=== PATIENT | male | born 1970 | race Caucasian/White ===

== ENCOUNTER 2017-05-17 16:26 | Observation (INO) | payer BC ==
--- NOTE | 2017-05-17 16:59 | RAD ---
PORTABLE AP CHEST: Date: 05/17/17. HISTORY: Chest pain. Patient diagnosed with flu last week. Patient is also hypotensive and dizzy. COMPARISON: 10/14/16. FINDINGS: Cardiac silhouette is magnified by projection. Pulmonary vasculature is within normal limits. The tennille gs are clear. There has been no interval change from prior study. IMPRESSION: No acute cardiopulmonary process. POS: [facility]
[2017-05-17 17:54] LABS: #Lymphocytes 1.1 thou/uL (1.20-3.40); #Monocytes 1.1 thou/uL (0.11-0.59); #Neutrophils 10.4 thou/uL (1.40-6.50); %Basophils 0.1 % (0.0-1.0); %Eosinophils 0.2 % (0.0-10.0); %Lymphocytes 8.4 % (21.0-51.0); %Monocytes 8.4 % (0.0-10.0); %Neutrophils 82.9 % (42.0-75.0); Hemoglobin 15.6 g/dL (14.0-18.0); Mean Corpuscular HGB CONC 33.2 g/dL (32.0-36.0); Mean Corpuscular Hemoglobin 29.7 pg (27.0-31.0); Mean Corpuscular Volume 89.4 fl (80.0-94.0); Mean Platelet Volume 7.1 fL (7.4-10.4); Platelet Count 268 thou/uL (130-400); RBC Distribution Width 13.7 % (11.5-14.5); Red Blood Cell (RBC) Count 5.25 mill/uL (4.70-6.10); White Blood Cell (WBC) Count 12.5 thou/uL (4.8-10.8)
[2017-05-17 18:17] LABS: ALT (SGPT) 28 U/L (8-55); AST (SGOT) 25 U/L (5-34); Albumin 4.3 g/dL (3.5-5.0); Alkaline Phosphatase 95 U/L (40-150); Anion Gap 16 mmol/L (10-20); BUN (Urea Nitrogen) 17 mg/dL (8.9-20.6); Bilirubin, Total 1.1 mg/dL (0.2-1.2); Calc. Creatinine Clearance 0 mL/min (70-130); Carbon Dioxide 29 mmol/L (22-29); Chloride 93 mmol/L (98-107); Estimated GFR-MDRD 29; Globulin 3.6 g/dL (2.4-3.5); Glucose 85 mg/dL (70-105); Lipase 42 U/L (8-78); Magnesium 2.1 mg/dL (1.6-2.6); Protein, Total 7.9 g/dL (6.0-8.3); Sodium 134 mmol/L (136-145)
[2017-05-17 19:19] LABS: Bilirubin Negative (Negative); Blood, Urine Negative (Negative); Clarity CLOUDY (Clear); Glucose, Urine (Dipstick) Negative (Negative); Leukocyte Negative (Negative); Nitrite Negative (Negative); Protein, Urine (Dipstick) 100 mg/dL (Neg-Trace); Specific Gravity, Urine 1.014 (1.002-1.036)
[2017-05-17 19:24] LABS: Pathc Cast-AUWi Flag 2.43 (0-2.49); Yeast-AUWi Flag 19.5 (0-25.0)
[2017-05-17 19:33] LABS: Bacteria/HPF 1+ HPF (None Seen); Hyaline Casts/LPF 0-3 HYALINE CAST LPF (0-3 Hyaline); Renal Epithelial None Seen HPF (0-3); Transitional Epithelial NONE SEEN HPF (0-3)
[2017-05-18] MEDS ORDERED: Mag-Al 1200 mg/1200 mg/30 ML UDCUP PO PRN (01:08)
[2017-05-18] MEDS ORDERED: Ondansetron HCl/PF 4 MG/2 ML Vial IVP PRN (01:08)
[2017-05-18] MEDS ORDERED: Diabetic Tussin 200 MG/10 ML UDCUP PO PRN (01:08)
[2017-05-18] MEDS ORDERED: Bisacodyl 5 MG TAB PO PRN (01:08)
[2017-05-18] MEDS ORDERED: Benzonatate 100 MG CAP PO PRN (01:08)
[2017-05-18] MEDS ORDERED: cloNIDine 0.1 MG TAB PO PRN (01:08)
[2017-05-18] MEDS ORDERED: hydrALAZINE 20 MG/ML VIAL SLOW IVP PRN (01:08)
[2017-05-18] MEDS ORDERED: Loratadine 10 MG TAB PO PRN (01:08)
[2017-05-18] MEDS ORDERED: Nitroglycerin 0.4 MG TAB (25 Tab Bottle) SL PRN (01:08)
[2017-05-18] MEDS ORDERED: Calcium Carbonate 500 MG ChewTAB PO PRN (01:08)
[2017-05-18] MEDS ORDERED: Acetaminophen 325 MG TAB PO PRN (01:08)
[2017-05-18] MEDS ORDERED: Senokot 8.6 MG TAB PO PRN (01:08)
[2017-05-18] MEDS ORDERED: Sodium Chloride 0.9% 1,000 ML IV SCH (01:15)
[2017-05-18 01:18] VITALS: BMI 40.1
[2017-05-18 06:20] LABS: #Eosinphils 0.1 thou/uL (0.0-0.7); #Lymphocytes 1.5 thou/uL (1.20-3.40); #Monocytes 0.6 thou/uL (0.11-0.59); #Neutrophils 5.6 thou/uL (1.40-6.50); %Basophils 0.1 % (0.0-1.0); %Eosinophils 0.7 % (0.0-10.0); %Lymphocytes 18.8 % (21.0-51.0); %Monocytes 8.2 % (0.0-10.0); %Neutrophils 72.3 % (42.0-75.0); Hemoglobin 15.1 g/dL (14.0-18.0); Mean Corpuscular HGB CONC 32.7 g/dL (32.0-36.0); Mean Corpuscular Hemoglobin 29.4 pg (27.0-31.0); Mean Corpuscular Volume 89.9 fl (80.0-94.0); Mean Platelet Volume 6.9 fL (7.4-10.4); Platelet Count 225 thou/uL (130-400); RBC Distribution Width 13.7 % (11.5-14.5); Red Blood Cell (RBC) Count 5.15 mill/uL (4.70-6.10); White Blood Cell (WBC) Count 7.8 thou/uL (4.8-10.8)
--- NOTE | 2017-05-18 06:35 | HP ---
DATE OF ADMISSION: 05/17/2017 PRIMARY CARE PHYSICIAN: Prieto Lea M.D. CHIEF COMPLAINT: Dizziness. HISTORY OF PRESENT ILLNESS: Mr. Sky is a 47-year-old male with past medical history of hypertensi on, varicose vein, and bipolar illness who presented to the emergency room with the above-mentioned c omplaints. History is mainly obtained by the patient himself and electronic medical records have bee n reviewed. According to Mr. Sky, he was at work today when he started to feel that he is going to pass out an d came to the emergency room. He recently had some cold, body aches and high fever at home and was p rescribed Tamiflu, which he decided not to take. He also had some loose stools earlier this morning. He also decided to increase his Cozaar by himself; even though, when his primary care physician has decreased it to half. He has been taking a full dose for the last one week. He also is not measuri ng his blood pressure because his blood pressure machine is broken. Nevertheless, he presented to [facility] emergency room and was found to be somewhat hypotensive with a blood pressure of 96/67 with elevate d BUN and creatinine suggestive of acute kidney insufficiency. He received IV fluids and is now bein g admitted for acute renal insufficiency and dehydration. He is otherwise hemodynamically stable. H is urinalysis did show +1 bacteria, but multiple epithelial cells and wbc's. He also has some protei matt. For this reason, he has received one dose of Rocephin in the emergency room. PAST MEDICAL HISTORY: 1. illness. 2. Hypertension. 3. Varicose veins. 4. History of venous stasis ulcer. PAST SURGICAL HISTORY: Vein stripping in 2001, urethral dilatation in , and wisdom teeth extrac tion in . ALLERGIES: CODEINE and PENICILLIN. CURRENT MEDICATIONS: Cozaar, otherwise the patient does not remember. SOCIAL HISTORY: He lives alone and is employed. Denies any drug, tobacco or alcohol abuse. FAMILY HISTORY: Diabetes, skin cancer on mother's side. Varicose vein and depression on father's si de. REVIEW OF SYSTEMS: The following complete review of systems was negative, unless otherwise mentioned in the HPI or below: Constitutional: Weight loss or gain, ability to conduct usual activities. Skin: Rash, itching. Eyes: Double vision, pain. ENT/Mouth: Nose bleeding, neck stiffness, pain, tenderness. Cardiovascular: Palpitations, dyspnea on exertion, orthopnea. Respiratory: Shortness of breath, wheezing, cough, hemoptysis, fever or night sweats. Gastrointestinal: Poor appetite, abdominal pain, heartburn, nausea, vomiting, constipation, or diarr hea. Genitourinary: Urgency, frequency, dysuria, nocturia. Musculoskeletal: Pain, swelling. Neurologic/Psychiatric: Anxiety, depression. Allergy/Immunologic: Skin rash, bleeding tendency. It is negative except for those mentioned in the history and physical. PHYSICAL EXAMINATION: VITAL SIGNS: Upon presentation, blood pressure 96/67, pulse of 96, respirations 20, saturating 95% o n room air, and temperature 98.4. GENERAL: No acute distress, awake, alert, oriented x3. HEENT: He has evidence of healed blisters on his lips. Mucous membrane is moist. Head is normoceph alic, atraumatic. Pupils equal, reactive to light and accommodation. NECK: Supple without any lymphadenopathy, JVD or bruit. CHEST: Clear to auscultation without any wheezing, rales or rhonchi. CARDIOVASCULAR: Rate and rhythm is regular without any murmur, rubs or gallops. ABDOMEN: Soft, nontender, nondistended with positive bowel sounds. EXTREMITIES: Free of any cyanosis, clubbing, or edema. He does have chronic venostasis changes in b ot lower extremities. NEUROLOGIC: Nonfocal. PSYCHIATRIC: No anxiety, no depression. LYMPHATIC: Normal. LABORATORY EXAMINATION: CBC shows WBCs at 12.5, platelet count of 268, neutrophils 82%. Serum chemi stry shows sodium 134, chloride 93, bicarbonate is normal at 29, creatinine 2.44 with BUN 17. Estima elkin GFR 29. Urinalysis as per HPI. His nasal swab for influenza is negative. PCR is not done. Yue st x-ray by my review is negative for any evidence of infiltrate or pleural fluid. A 12-lead EKG by my review shows prolonged QT interval, QTC of 487 milliseconds, otherwise sinus rhythm at 98 beats pe r minute. IMPRESSION AND PLAN: 1. Near syncope secondary to dehydration. The patient has possibly had influenza recently, which he decided to not treat, has decreased oral intake along with high fevers and likely is dehydrated seco ndary to that. He will be resuscitated with IV fluids and we will monitor closely. Hold his antihyp ertensives for now. 2. Acute renal insufficiency. Once again likely secondary to dehydration, prerenal in nature; howev er, given the proteinuria, we will repeat the urinalysis in the morning. If he continues to have pro teinuria and if his renal function does not improve, please consider consulting Nephrology or outpati ent Nephrology followup. We will also obtain renal ultrasound to rule out hydronephrosis or nephroli thiasis as cause of proteinuria as well as for medical renal disease. 3. Bacteriuria. His urine sample looks contaminated. At this time, we will repeat the urinalysis a nd avoid using antibiotics for now. 4. History of hypertension. We will hold the antihypertensives for now and reconcile his home medic ations. He most likely will benefit from going back to the half dose of Cozaar that he takes or just replace ALLI inhibitor and ARBs with alternative form of medications. We will avoid any diuretics at this time as well for blood pressure control. 5. Code status: FULL CODE, discussed with the patient. DISPOSITION: Mr. Sky is being admitted for dehydration and acute renal insufficiency at this time . Further management will depend upon his clinical course. Current status is observation.
[2017-05-18 06:38] LABS: Anion Gap 13 mmol/L (10-20); BUN (Urea Nitrogen) 14 mg/dL (8.9-20.6); Calc. Creatinine Clearance 164 mL/min (70-130); Calcium 9.5 mg/dL (7.8-10.44); Carbon Dioxide 29 mmol/L (22-29); Chloride 100 mmol/L (98-107); Estimated GFR-MDRD 72; Glucose 93 mg/dL (70-105); Potassium 3.4 mmol/L (3.5-5.1); Sodium 139 mmol/L (136-145)
[2017-05-18 07:24] VITALS: TEMP 98.8
--- NOTE | 2017-05-18 07:38 | ULT ---
BILATERAL RENAL ULTRASOUND: Date: 05/18/17 COMPARISON: None. HISTORY: Acute kidney injury, proteinuria. TECHNIQUE: Multiplanar Mercedes scale sonographic imaging of the kidneys and urinary bladder obtained. FINDINGS: Right kidney measures 11.6 x 6.2 x 7.3 cm. Left kidney measures 13.0 x 6.3 x 6.7 cm. No renal mass, h ydronephrosis, or stone seen on either side. Urinary bladder appears grossly unremarkable. IMPRESSION: Unremarkable renal ultrasound. POS: [facility]
[2017-05-18 09:59] VITALS: BP 135/77
== END 2017-05-18 10:56 | disposition home or self-care (01) ==
LOC: ERS 16:26 → ONC 20:52
PROVIDERS: ADMIT Internal Medicine; ATTEND Internal Medicine
DX: E86.0 Dehydration (principal); N28.9 Disorder of kidney and ureter, unspecified; R55 Syncope and collapse; R82.71 Bacteriuria; I10 Essential (primary) hypertension; F31.9 Bipolar disorder, unspecified; Z88.5 Allergy status to narcotic agent; Z88.0 Allergy status to penicillin; Z79.899 Other long term (current) drug therapy; Z98.890 Other specified postprocedural states; Z83.3 Family history of diabetes mellitus; Z80.8 Family history of malignant neoplasm of other organs or systems; Z81.8 Family history of other mental and behavioral disorders
CPT/HCPCS: 36415; 71045; 76770; 80053; 81003; 81015; 83690; 83735; 85025; 93005; 96361; 96374; G0378; J0696

== ENCOUNTER 2017-05-30 19:30 | Outpatient (CLI) | payer BC | END 2017-05-30 19:31 | disposition home or self-care (01) | LOC: SLEEPLAB 19:30 | PROVIDERS: ATTEND Internal Medicine Pulmonary Disease | DX: G47.33 Obstructive sleep apnea (adult) (pediatric) (principal); E66.9 Obesity, unspecified; K21.9 Gastro-esophageal reflux disease without esophagitis | CPT/HCPCS: 95811 ==

== ENCOUNTER 2017-08-01 06:50 | Inpatient (IN) | payer BC ==
[2017-08-01 08:15] LABS: #Eosinphils 0.1 thou/uL (0.0-0.7); #Lymphocytes 1.3 thou/uL (1.20-3.40); #Monocytes 0.5 thou/uL (0.11-0.59); %Eosinophils 2.4 % (0.0-10.0); %Lymphocytes 22.5 % (21.0-51.0); %Monocytes 8.1 % (0.0-10.0); %Neutrophils 67.1 % (42.0-75.0); Hemoglobin 12.7 g/dL (14.0-18.0); Mean Corpuscular HGB CONC 33.3 g/dL (32.0-36.0); Mean Corpuscular Hemoglobin 29.5 pg (27.0-31.0); Mean Corpuscular Volume 88.5 fl (80.0-94.0); Mean Platelet Volume 6.8 fL (7.4-10.4); Platelet Count 232 thou/uL (130-400); White Blood Cell (WBC) Count 5.9 thou/uL (4.8-10.8)
[2017-08-01 08:31] LABS: ALT (SGPT) 27 U/L (8-55); AST (SGOT) 25 U/L (5-34); Albumin 3.8 g/dL (3.5-5.0); Alkaline Phosphatase 97 U/L (40-150); Anion Gap 10 mmol/L (10-20); BUN (Urea Nitrogen) 7 mg/dL (8.9-20.6); Bilirubin, Total 0.5 mg/dL (0.2-1.2); Calc. Creatinine Clearance 0 mL/min (70-130); Carbon Dioxide 26 mmol/L (22-29); Chloride 105 mmol/L (98-107); Estimated GFR-MDRD Greater than 90; Globulin 3.5 g/dL (2.4-3.5); Glucose 97 mg/dL (70-105); Potassium 3.8 mmol/L (3.5-5.1); Protein, Total 7.3 g/dL (6.0-8.3); Sodium 137 mmol/L (136-145)
--- NOTE | 2017-08-01 09:07 | ULT ---
RIGHT LOWER EXTREMITY VENOUS DUPLEX SONOGRAM: Date: 08/01/17 HISTORY: Right leg pain and edema. FINDINGS: The right common femoral vein and greater saphenous junction were evaluated, along with the femoral, deep femoral, popliteal, and posterior tibial veins. There is good color and spectral Doppler flow, c ompression, and augmentation. Reactive appearing lymph nodes are noted at the right groin. IMPRESSION: No sonographic evidence of deep venous thrombosis in right lower extremity. POS: [facility]
[2017-08-01] MEDS ORDERED: Mag-Al 1200 mg/1200 mg/30 ML UDCUP PO PRN (12:21)
[2017-08-01] MEDS ORDERED: Ondansetron ODT 4 MG TAB PO PRN (12:21)
[2017-08-01] MEDS ORDERED: Zolpidem Tartrate 5 MG TAB PO PRN (12:21)
[2017-08-01] MEDS ORDERED: Diabetic Tussin 200 MG/10 ML UDCUP PO PRN (12:21)
[2017-08-01] MEDS ORDERED: Senokot 8.6 MG TAB PO PRN (12:21)
[2017-08-01] MEDS ORDERED: Loperamide HCl 2 MG CAP PO PRN (12:21)
[2017-08-01] MEDS ORDERED: Chloraseptic Spray 180 ml Bottle PO PRN (12:21)
[2017-08-01] MEDS ORDERED: Sodium Chloride 0.65% Nasal 44 ML BOT EA NARE PRN (12:21)
[2017-08-01] MEDS ORDERED: Loratadine 10 MG TAB PO PRN (12:21)
[2017-08-01] MEDS ORDERED: Milk Of Magnesia 30 ML UDCUP PO PRN (12:21)
[2017-08-01] MEDS ORDERED: hydrALAZINE 20 MG/ML VIAL SLOW IVP PRN (12:21)
[2017-08-01] MEDS ORDERED: Artificial Tears 18 DROP/0.9 ML EA EYE PRN (12:21)
[2017-08-01] MEDS ORDERED: Fentanyl 100 MCG/2 ML VIAL SLOW IVP PRN (12:21)
[2017-08-01] MEDS ORDERED: Ondansetron HCl/PF 4 MG/2 ML Vial IVP PRN (12:21)
[2017-08-01] MEDS ORDERED: Eucerin (Mineral Oil/Petrolatum,White) 30 gm Jar TOP PRN (12:21)
[2017-08-01 12:39] VITALS: BMI 42.8
--- NOTE | 2017-08-01 13:28 | HP ---
PRIMARY CARE PHYSICIAN: Dr. Prieto Lea. REASON FOR ADMISSION: Right lower extremity cellulitis with venous ulcer. HISTORY OF PRESENT ILLNESS: A 47-year-old male with a history of hypertension, morbid obesity, and c hronic venous insufficiency who came to the emergency room with complaint of right lower extremity sw elling, pain, erythema, and drainage from the wound over right lower leg. The patient has this for t he last couple of weeks. He was given Bactrim and Keflex from Urgent Care last week which he was monserrat ing every day basis without any improvement. He was feeling that swelling, erythema and pain is gett ing worse. He was also having fever about a week ago, but after starting antibiotic, fever subsided, but swelling, erythema is getting worse. He denies wearing any compression stockings. He denies an y trauma. He denies any insect bite. He is following [facility] with Dr. Sheehan and he is plan jhonatan for ablation therapy on 08/11/[address] Sheehan. The patient reports that his pain in the lower extremity is about 10/10 and with walking, pain is get ting worse. In the emergency room, ultrasound was done which was negative for any DVT. He denies an y constipation, diarrhea, melena, hematochezia. He denies any UTI symptoms. He denies any chest bobbi n, palpitation, shortness of breath. REVIEW OF SYSTEMS: The following complete review of systems was negative, unless otherwise mentioned in the HPI or below: Constitutional: Weight loss or gain, ability to conduct usual activities. Sk in: Rash, itching. Eyes: Double vision, pain. ENT/Mouth: Nose bleeding, neck stiffness, pain, te nderness. Cardiovascular: Palpitations, dyspnea on exertion, orthopnea. Respiratory: Shortness of breath, wheezing, cough, hemoptysis, fever or night sweats. Gastrointestinal: Poor appetite, abdomi nal pain, heartburn, nausea, vomiting, constipation, or diarrhea. Genitourinary: Urgency, frequency , dysuria, nocturia. Musculoskeletal: Pain, swelling. Neurologic/Psychiatric: Anxiety, depression . Allergy/Immunologic: Skin rash, bleeding tendency. Please see my HPI for pertinent positives and negatives. All other review of systems reviewed and negative except as mentioned in the HPI. PAST MEDICAL HISTORY: Morbid obesity, hypertension, varicose vein, chronic venous insufficiency. PAST PSYCHIATRIC HISTORY: Bipolar disorder. PAST SURGICAL HISTORY: Vein stripping in 2001, urethral dilatation in 1979, wisdom tooth removal in 1979. ALLERGIES: CODEINE and PENICILLIN. CURRENT HOME MEDICATIONS: Prozac 20 mg p.o. daily, losartan 100 mg p.o. daily, olanzapine 10 mg p.o. at bedtime. SOCIAL HISTORY: Patient lives alone. He denies any tobacco, alcohol or illicit drug abuse. FAMILY HISTORY: Diabetes, skin cancer runs on mother's side. Varicose vein and depression runs on t he father's side. EMERGENCY ROOM COURSE: The patient has given vancomycin. PHYSICAL EXAMINATION: VITAL SIGNS: Currently, blood pressure 156/104, pulse 83, respiratory rate 20, temperature 98.0, sat uration 99% on room air, weight 154.2 kilograms. GENERAL: Patient is currently alert, awake, no acute distress. HEENT: Head, normocephalic, atraumatic. Eyes: Pupils round, reactive to light. Extraocular muscle intact. ENT: Oropharynx within normal limits. Moist mucous membranes. No oral lesion, no pharyng eal erythema, no exudate. NECK: Supple, no JVD, no thyromegaly, no carotid bruit, no jugular venous distention. LUNGS: Clear to auscultation without any rhonchi or rales. CARDIAC: S1, S2 appears regular. No murmur, no gallop, no rub. ABDOMEN: Soft, bowel sounds present, nontender, nondistended. No organomegaly, no mass, no suprapub ic tenderness. Morbid obesity limiting examination. BACK: Unremarkable, no CVA tenderness. EXTREMITIES: Upper extremity, passive movement of all joints is normal. Lower extremity, bilateral lower extremity, chronic venous insufficiency changes noted. Patient does have mid santana tenderness. Bilateral lower extremity erythematous changes with hyperpigmentation more on the right side with oo zing noted from erythema as well as from ulcers. NEUROLOGIC: Nonfocal examination. The patient moves all 4 limbs. Plantar bilateral flexor. SKIN: No skin rash other than chronic venous stasis changes as well as cellulitis changes in both lo wer extremities, more on the right lower extremity. HEMATOLOGIC: No lymphadenopathy. PSYCHIATRIC: Normal affect. SIGNIFICANT LABS: Ultrasound of lower extremity negative for any DVT. CBC: WBC 5.9, hemoglobin 12. 7, platelets 232. BMP shows sodium 137, potassium 3.8, chloride 105, carbon dioxide 26, anion gap 10 , BUN 7, creatinine 0.73, glucose 97, calcium 9.0. LFT: AST 25, ALT 27, alkaline phosphatase is 97, albumin 3.8. ASSESSMENT AND PLAN: 1. Cellulitis with venous ulcer on the right lower extremity, failed outpatient therapy. 2. Chronic venous insufficiency with varicose vein. 3. Morbid obesity. 4. Hypertension. 5. Anxiety, depression with bipolar disorder. PLAN: 1. Admission to medical floor. Antibiotic therapy with vancomycin and levofloxacin. DVT prophylaxi s with Lovenox 40 mg subcutaneously daily. 2. Gastrointestinal prophylaxis with Pepcid 20 mg p.o. b.i.d. Resume home medication, Prozac 20 mg p.o. daily, olanzapine 10 mg p.o. daily along with antihypertensive medication, losartan 100 mg p.o. daily. Pain control with fentanyl p.r.n. basis and Toradol on p.r.n. basis. Wound care team will be consulted for wound care followup and culture result. 3. Code status: The patient is FULL CODE. Patient does not have any surrogate decision maker. He is making his decision by himself. DISPOSITION PLAN: Based on clinical course. We are expecting patient's stay in hospital more than 2 midnights. Plan of care discussed with the patient in detail.
[2017-08-01] MEDS: Vancomycin HCl 2 GM, Admixture Fee 1 EACH in Sodium Chloride 0.9% 500 ML IVPB SCH ×2 (14:56→21:12)
[2017-08-01] MEDS: Ketorolac Tromethamine 30 MG/ML VIAL IVP PRN (16:10)
[2017-08-01] MEDS: Famotidine 20 MG TAB PO SCH (21:12)
[2017-08-02] MEDS: Vancomycin HCl 2 GM, Admixture Fee 1 EACH in Sodium Chloride 0.9% 500 ML IVPB SCH ×3 (05:21→21:04)
[2017-08-02 05:57] LABS: #Eosinphils 0.1 thou/uL (0.0-0.7); #Lymphocytes 1.4 thou/uL (1.20-3.40); #Monocytes 0.4 thou/uL (0.11-0.59); #Neutrophils 4.9 thou/uL (1.40-6.50); %Basophils 0.3 % (0.0-1.0); %Eosinophils 1.4 % (0.0-10.0); %Lymphocytes 20.1 % (21.0-51.0); %Neutrophils 72.2 % (42.0-75.0); Hemoglobin 13.2 g/dL (14.0-18.0); Mean Corpuscular HGB CONC 33.2 g/dL (32.0-36.0); Mean Corpuscular Hemoglobin 28.7 pg (27.0-31.0); Mean Corpuscular Volume 86.6 fl (80.0-94.0); Mean Platelet Volume 6.3 fL (7.4-10.4); Platelet Count 237 thou/uL (130-400); RBC Distribution Width 13.9 % (11.5-14.5); Red Blood Cell (RBC) Count 4.59 mill/uL (4.70-6.10); White Blood Cell (WBC) Count 6.7 thou/uL (4.8-10.8)
[2017-08-02 06:09] LABS: Vancomycin, Trough 27.3 ug/mL
[2017-08-02] MEDS: Ketorolac Tromethamine 30 MG/ML VIAL IVP PRN (06:09)
[2017-08-02 06:25] LABS: Anion Gap 13 mmol/L (10-20); BUN (Urea Nitrogen) 8 mg/dL (8.9-20.6); CRP (Inflammatory) 0.81 mg/dL (= or < 0.5); Calc. Creatinine Clearance 246 mL/min (70-130); Carbon Dioxide 24 mmol/L (22-29); Chloride 103 mmol/L (98-107); Estimated GFR-MDRD Greater than 90; Glucose 95 mg/dL (70-105); Potassium 4.7 mmol/L (3.5-5.1); Sodium 135 mmol/L (136-145)
[2017-08-02] MEDS: Enoxaparin Sodium 40 MG/0.4 ML SYRINGE SC SCH (08:58)
[2017-08-02] MEDS: Famotidine 20 MG TAB PO SCH ×2 (08:59→21:03)
[2017-08-02] MEDS: Saccharomyces boulardii 250 MG CAP PO SCH (08:59)
[2017-08-02] MEDS: Losartan 25 MG TAB PO SCH (08:59)
[2017-08-02] MEDS ORDERED: OLANZapine 5 MG TAB PO SCH (09:00)
[2017-08-02] MEDS ORDERED: FLUoxetine HCl 20 MG CAP PO SCH (09:00)
[2017-08-02 13:56] LABS: Vancomycin, Trough 17.2 ug/mL
--- NOTE | 2017-08-02 14:47 | PDOC.PN ---
- Subjective Encounter Start Date: 08/02/17 Encounter Start Time: 14:44 Subjective: feels good. no acute chnages.no new complaints - Objective Resuscitation Status: Resuscitation Status FULL:Full Resuscitation MAR Reviewed: Yes Vital Signs & Weight: Vital Signs (12 hours) Temp Pulse Resp BP Pulse Ox 08/02/17 11:57 98.1 F 88 18 155/96 H 95 08/02/17 08:00 98.3 F 80 18 150/90 H 98 08/02/17 04:00 98.2 F 81 20 149/86 H 98 Weight Admit Weight 324 lb 9.6 oz Weight 324 lb 9.6 oz I&O: 08/01/17 08/02/17 08/03/17 06:59 06:59 06:59 Intake Total 2865 600 Balance 2865 600 Result Diagrams: 08/02/17 05:44 08/02/17 05:44 Additional Labs: Microbiology 08/01/17 08:12 Venous blood - Left Hand Blood Culture - Preliminary Specimen has been received and culture in progress. No Growth to date. 08/01/17 07:59 Venous blood - Left Arm Blood Culture - Preliminary Specimen has been received and culture in progress. No Growth to date. Phys Exam - Physical Examination Constitutional: NAD HEENT: PERRLA, moist MMs, sclera anicteric, TM's clear, oral pharynx no lesions , 2+ tonsils Neck: no nodes, no JVD, supple, full ROM Respiratory: no wheezing, no rales, no rhonchi, clear to auscultation bilateral Cardiovascular: RRR, no significant murmur Gastrointestinal: soft, non-tender, no distention, positive bowel sounds Musculoskeletal: pulses present, edema present RLE greeish eschar over chr erythema with oozing Neurological: non-focal, normal sensation, moves all 4 limbs Psychiatric: normal affect, A&O x 3 Skin: no rash Dx/Plan (1) Cellulitis of right lower extremity Code(s): L03.115 - CELLULITIS OF RIGHT LOWER LIMB Status: Acute (2) NENA (obstructive sleep apnea) Code(s): G47.33 - OBSTRUCTIVE SLEEP APNEA (ADULT) (PEDIATRIC) Status: Chronic Comment: CPAP hs (3) Morbid obesity Code(s): E66.01 - MORBID (SEVERE) OBESITY DUE TO EXCESS CALORIES Status: Chronic (4) Chronic venous insufficiency Status: Chronic (5) Bipolar 1 disorder Code(s): F31.9 - BIPOLAR DISORDER, UNSPECIFIED Status: Chronic (6) Hypertension, benign Code(s): I10 - ESSENTIAL (PRIMARY) HYPERTENSION Status: Chronic - Plan continue antibiotics, PT/OT, out of bed/ambulate, DVT proph w/SCDs cont IV ABx,wound care consulted -: check LE arterial dopplers. -: add probiotics. -: hemodynamically stable. -: CPAP qhs.home meds as below. * . Review of Systems - Review of Systems Constitutional: negative: fever, chills, sweats, weakness, malaise, other Eyes: negative: Pain, Vision Change, Conjunctivae Inflammation, Eyelid Inflammation, Redness, Other ENT: negative: Ear Pain, Ear Discharge, Nose Pain, Nose Discharge, Nose Congestion, Mouth Pain, Mouth Swelling, Throat Pain, Throat Swelling, Other Respiratory: negative: Cough, Dry, Shortness of Breath, Hemoptysis, SOB with Excertion, Pleuritic Pain, Sputum, Wheezing Cardiovascular: negative: chest pain, palpitations, orthopnea, paroxysmal nocturnal dyspnea, edema, light headedness, other Gastrointestinal: negative: Nausea, Vomiting, Abdominal Pain, Diarrhea, Constipation, Melena, Hematochezia, Other Genitourinary: negative: Dysuria, Frequency, Incontinence, Hematuria, Retention , Other Musculoskeletal: negative: Neck Pain, Shoulder Pain, Arm Pain, Back Pain, Hand Pain, Leg Pain, Foot Pain, Other Skin: negative: Rash, Lesions, Shashank, Bruising, Other Neurological: negative: Weakness, Numbness, Incoordination, Change in Speech, Confusion, Seizures, Other - Medications/Allergies Allergies/Adverse Reactions: Allergies Allergy/AdvReac Type Severity Reaction Status Date / Time codeine Allergy Intermediate Hives Verified 06/18/14 21:25 Penicillins Allergy Intermediate Hives Verified 05/18/17 01:32 Medications: Current Medications Acetaminophen (Tylenol) 650 mg PO Q4H PRN PRN Reason: Headache/Fever or Pain Al Hydroxide/Mg Hydroxide (Maalox) 30 ml PO Q6H PRN PRN Reason: Heartburn or Indigestion Artificial Tears (Tears Naturale) 0 drop EA EYE PRN PRN PRN Reason: Dry Eyes Enoxaparin Sodium (Lovenox) 40 mg SC 0900 YOLANDA Last Admin: 08/02/17 08:58 Dose: 40 mg Famotidine (Pepcid) 20 mg PO BID COUNTS INCLUDE 234 BEDS AT THE [facility] Last Admin: 08/02/17 08:59 Dose: 20 mg Fentanyl (Sublimaze) 25 mcg SLOW IVP Q4H PRN PRN Reason: Pain Fluoxetine HCl (Prozac) 20 mg PO DAILY COUNTS INCLUDE 234 BEDS AT THE [facility] Last Admin: 08/02/17 08:59 Dose: 20 mg Guaifenesin (Robitussin Sf) 200 mg PO Q4H PRN PRN Reason: Cough Hydralazine HCl (Apresoline) 10 mg SLOW IVP Q4H PRN PRN Reason: Systolic BP > 180 Vancomycin HCl 2 gm/Miscellaneous Medication 1 each/ Sodium Chloride 500 mls @ 250 mls/hr IVPB Q8HR COUNTS INCLUDE 234 BEDS AT THE [facility] Last Admin: 08/02/17 14:10 Dose: 500 mls Ketorolac Tromethamine (Toradol) 15 mg IVP Q6H PRN PRN Reason: Pain Last Admin: 08/02/17 06:09 Dose: 15 mg Levofloxacin (Levaquin) 500 mg PO 1430 COUNTS INCLUDE 234 BEDS AT THE [facility] Last Admin: 08/02/17 14:10 Dose: 500 mg Loperamide HCl (Imodium) 2 mg PO PRN PRN PRN Reason: Diarrhea/Loose Stools Loratadine (Claritin) 10 mg PO DAILYPRN PRN PRN Reason: Sinus Symptoms Losartan Potassium (Cozaar) 100 mg PO DAILY COUNTS INCLUDE 234 BEDS AT THE [facility] Last Admin: 08/02/17 08:59 Dose: 100 mg Magnesium Hydroxide (Milk Of Magnesium) 30 ml PO DAILYPRN PRN PRN Reason: Constipation Mineral Oil/White Petrolatum (Eucerin Cream) 0 gm TOP BIDPRN PRN PRN Reason: Dry Skin Miscellaneous Medication (Pharmacy To Dose) 1 each IVPB ASDIR COUNTS INCLUDE 234 BEDS AT THE [facility] Olanzapine (Zyprexa) 10 mg PO DAILY COUNTS INCLUDE 234 BEDS AT THE [facility] Last Admin: 08/02/17 08:59 Dose: 10 mg Ondansetron HCl (Zofran Odt) 4 mg PO Q6H PRN PRN Reason: Nausea/Vomiting Ondansetron HCl (Zofran) 4 mg IVP Q6H PRN PRN Reason: Nausea/Vomiting Phenol (Chloraseptic [place] 180 Ml Bot) 0 ml PO PRN PRN PRN Reason: Sore Throat Saccharomyces Boulardii (Florastor) 250 mg PO DAILY YOLANDA Last Admin: 08/02/17 08:59 Dose: 250 mg Senna (Senokot) 2 tab PO HSPRN PRN PRN Reason: Constipation Sodium Chloride (Lane Nasal [place] 0.65%) 0 ml EA NARE QIDPRN PRN PRN Reason: Nasal Congestion Zolpidem Tartrate (Ambien) 5 mg PO HSPRN PRN PRN Reason: Insomnia
[2017-08-02] MEDS: Acetaminophen 325 MG TAB PO PRN (18:36)
[2017-08-03] MEDS: Vancomycin HCl 2 GM, Admixture Fee 1 EACH in Sodium Chloride 0.9% 500 ML IVPB SCH ×3 (05:32→21:15)
[2017-08-03] MEDS ORDERED: Non-Formulary Item 1 EACH (Losartan Potassium [Cozaar] 100 MG) PO SCH (09:00)
[2017-08-03] MEDS: Enoxaparin Sodium 40 MG/0.4 ML SYRINGE SC SCH (09:02)
[2017-08-03] MEDS: Famotidine 20 MG TAB PO SCH ×2 (09:03→21:13)
[2017-08-03] MEDS: Losartan 25 MG TAB PO SCH (09:03)
[2017-08-03] MEDS: FLUoxetine HCl 20 MG CAP PO SCH (09:03)
[2017-08-03] MEDS: Saccharomyces boulardii 250 MG CAP PO SCH (09:03)
[2017-08-03] MEDS: Multivit, Therapeutic 1 TAB PO SCH (09:03)
[2017-08-03] MEDS: Acetaminophen 325 MG TAB PO PRN (09:03)
--- NOTE | 2017-08-03 14:53 | PDOC.PN ---
- Subjective Encounter Start Date: 08/03/17 Encounter Start Time: 14:51 Subjective: feeling much better.leg discoloration improving - Objective Resuscitation Status: Resuscitation Status FULL:Full Resuscitation MAR Reviewed: Yes Vital Signs & Weight: Vital Signs (12 hours) Temp Pulse Resp BP Pulse Ox 08/03/17 11:09 98.2 F 92 22 H 136/89 96 08/03/17 08:45 98.3 F 85 18 100 08/03/17 07:18 98.3 F 85 18 154/98 H 100 08/03/17 04:01 97.9 F 99 18 144/93 H 91 L Weight Admit Weight 324 lb 9.6 oz Weight 324 lb 9.6 oz I&O: 08/02/17 08/03/17 08/04/17 06:59 06:59 06:59 Intake Total 2865 4530 Balance 2865 4530 Result Diagrams: 08/02/17 05:44 08/02/17 05:44 Additional Labs: Microbiology 08/01/17 08:12 Venous blood - Left Hand Blood Culture - Preliminary NO GROWTH AT 48 HOURS 08/01/17 07:59 Venous blood - Left Arm Blood Culture - Preliminary NO GROWTH AT 48 HOURS Phys Exam - Physical Examination Constitutional: NAD HEENT: PERRLA, moist MMs, sclera anicteric, oral pharynx no lesions Neck: no nodes, no JVD, supple, full ROM Respiratory: no wheezing, no rales, no rhonchi, clear to auscultation bilateral Cardiovascular: RRR, no significant murmur Gastrointestinal: soft, non-tender, no distention, positive bowel sounds Musculoskeletal: pulses present, edema present greenish eschar both legs which is now drying w surrounding erythema.less w Neurological: non-focal, normal sensation, moves all 4 limbs Psychiatric: normal affect, A&O x 3 Skin: no rash Dx/Plan (1) Cellulitis of right lower extremity Code(s): L03.115 - CELLULITIS OF RIGHT LOWER LIMB Status: Acute (2) NENA (obstructive sleep apnea) Code(s): G47.33 - OBSTRUCTIVE SLEEP APNEA (ADULT) (PEDIATRIC) Status: Chronic Comment: CPAP hs (3) Morbid obesity Code(s): E66.01 - MORBID (SEVERE) OBESITY DUE TO EXCESS CALORIES Status: Chronic (4) Chronic venous insufficiency Status: Chronic (5) Bipolar 1 disorder Code(s): F31.9 - BIPOLAR DISORDER, UNSPECIFIED Status: Chronic (6) Hypertension, benign Code(s): I10 - ESSENTIAL (PRIMARY) HYPERTENSION Status: Chronic - Plan PT/OT, social studies department chair, DVT proph w/SCDs OBDULIA>1 b/l.no arterial insufficiency.booker all venous -: cont IV ABx for 24 hours & if continues to improve,change to PO -: Outpatient Wound care referral -: am labs. -: CPAP qhs * . Review of Systems - Review of Systems Constitutional: negative: fever, chills, sweats, weakness, malaise, other Eyes: negative: Pain, Vision Change, Conjunctivae Inflammation, Eyelid Inflammation, Redness, Other ENT: negative: Ear Pain, Ear Discharge, Nose Pain, Nose Discharge, Nose Congestion, Mouth Pain, Mouth Swelling, Throat Pain, Throat Swelling, Other Respiratory: negative: Cough, Dry, Shortness of Breath, Hemoptysis, SOB with Excertion, Pleuritic Pain, Sputum, Wheezing Cardiovascular: edema. negative: chest pain, palpitations, orthopnea, paroxysmal nocturnal dyspnea, light headedness, other Gastrointestinal: negative: Nausea, Vomiting, Abdominal Pain, Diarrhea, Constipation, Melena, Hematochezia, Other Genitourinary: negative: Dysuria, Frequency, Incontinence, Hematuria, Retention , Other Musculoskeletal: negative: Neck Pain, Shoulder Pain, Arm Pain, Back Pain, Hand Pain, Leg Pain, Foot Pain, Other Skin: negative: Rash, Lesions, Shashank, Bruising, Other Neurological: negative: Weakness, Numbness, Incoordination, Change in Speech, Confusion, Seizures, Other - Medications/Allergies Allergies/Adverse Reactions: Allergies Allergy/AdvReac Type Severity Reaction Status Date / Time codeine Allergy Intermediate Hives Verified 06/18/14 21:25 Penicillins Allergy Intermediate Hives Verified 05/18/17 01:32 Medications: Current Medications Acetaminophen (Tylenol) 650 mg PO Q4H PRN PRN Reason: Headache/Fever or Pain Last Admin: 08/03/17 09:03 Dose: 650 mg Al Hydroxide/Mg Hydroxide (Maalox) 30 ml PO Q6H PRN PRN Reason: Heartburn or Indigestion Artificial Tears (Tears Naturale) 0 drop EA EYE PRN PRN PRN Reason: Dry Eyes Enoxaparin Sodium (Lovenox) 40 mg SC 0900 [facility] Last Admin: 08/03/17 09:02 Dose: 40 mg Famotidine (Pepcid) 20 mg PO BID [facility] Last Admin: 08/03/17 09:03 Dose: 20 mg Fentanyl (Sublimaze) 25 mcg SLOW IVP Q4H PRN PRN Reason: Pain Fluoxetine HCl (Prozac) 40 mg PO DAILY [facility] Last Admin: 08/03/17 09:03 Dose: 40 mg Guaifenesin (Robitussin Sf) 200 mg PO Q4H PRN PRN Reason: Cough Hydralazine HCl (Apresoline) 10 mg SLOW IVP Q4H PRN PRN Reason: Systolic BP > 180 Vancomycin HCl 2 gm/Miscellaneous Medication 1 each/ Sodium Chloride 500 mls @ 250 mls/hr IVPB Q8HR [facility] Last Admin: 08/03/17 14:32 Dose: 500 mls Ketorolac Tromethamine (Toradol) 15 mg IVP Q6H PRN PRN Reason: Pain Last Admin: 08/02/17 06:09 Dose: 15 mg Levofloxacin (Levaquin) 500 mg PO 1430 [facility] Last Admin: 08/03/17 14:32 Dose: 500 mg Loperamide HCl (Imodium) 2 mg PO PRN PRN PRN Reason: Diarrhea/Loose Stools Loratadine (Claritin) 10 mg PO DAILYPRN PRN PRN Reason: Sinus Symptoms Losartan Potassium (Cozaar) 100 mg PO DAILY [facility] Last Admin: 08/03/17 09:03 Dose: 100 mg Magnesium Hydroxide (Milk Of Magnesium) 30 ml PO DAILYPRN PRN PRN Reason: Constipation Mineral Oil/White Petrolatum (Eucerin Cream) 0 gm TOP BIDPRN PRN PRN Reason: Dry Skin Miscellaneous Medication (Pharmacy To Dose) 1 each IVPB ASDIR [facility] Multivitamins (Theragran) 1 tab PO DAILY [facility] Last Admin: 08/03/17 09:03 Dose: 1 tab Olanzapine (Zyprexa) 10 mg PO HS [facility] Ondansetron HCl (Zofran Odt) 4 mg PO Q6H PRN PRN Reason: Nausea/Vomiting Ondansetron HCl (Zofran) 4 mg IVP Q6H PRN PRN Reason: Nausea/Vomiting Phenol (Chloraseptic [place] 180 Ml Bot) 0 ml PO PRN PRN PRN Reason: Sore Throat Saccharomyces Boulardii (Florastor) 250 mg PO DAILY [facility] Last Admin: 08/03/17 09:03 Dose: 250 mg Senna (Senokot) 2 tab PO HSPRN PRN PRN Reason: Constipation Sodium Chloride ([place] Nasal [place] 0.65%) 0 ml EA NARE QIDPRN PRN PRN Reason: Nasal Congestion Zolpidem Tartrate (Ambien) 5 mg PO HSPRN PRN PRN Reason: Insomnia
--- NOTE | 2017-08-03 16:37 | ULT ---
LOWER EXTREMITY ARTERIAL STUDY: HISTORY: This is a patient with ulcers on both lower extremities. PROCEDURE: Examination of the lower extremities reveals normal waveforms on the right at the femoral, posterior tibial, and dorsalis pedis levels with an ankle-arm index of 1.09 and normal toe brachial index. Lef t lower extremity demonstrates normal waveforms at the femoral, popliteal, and posterior tibial level s with a monophasic dorsalis pedis. Ankle-arm index once again is normal and toe brachial index is n ormal. At this time, there is no evidence of significant peripheral arterial disease and would not be consis tent with ischemic ulcers. POS: ZHANNA
[2017-08-03] MEDS: OLANZapine 5 MG TAB PO SCH (21:14)
[2017-08-04] MEDS: Vancomycin HCl 2 GM, Admixture Fee 1 EACH in Sodium Chloride 0.9% 500 ML IVPB SCH ×3 (01:14→17:08)
[2017-08-04] MEDS ORDERED: Vancomycin HCl 2 GM, Admixture Fee 1 EACH in Sodium Chloride 0.9% 500 ML IVPB SCH (02:00)
[2017-08-04 05:56] LABS: #Eosinphils 0.1 thou/uL (0.0-0.7); #Lymphocytes 1.4 thou/uL (1.20-3.40); #Monocytes 0.4 thou/uL (0.11-0.59); #Neutrophils 4.7 thou/uL (1.40-6.50); %Basophils 0.4 % (0.0-1.0); %Eosinophils 1.3 % (0.0-10.0); %Lymphocytes 21.4 % (21.0-51.0); %Monocytes 6.5 % (0.0-10.0); %Neutrophils 70.3 % (42.0-75.0); Hemoglobin 13.2 g/dL (14.0-18.0); Mean Corpuscular HGB CONC 33.9 g/dL (32.0-36.0); Mean Corpuscular Hemoglobin 29.1 pg (27.0-31.0); Mean Corpuscular Volume 85.9 fl (80.0-94.0); Mean Platelet Volume 6.6 fL (7.4-10.4); Platelet Count 216 thou/uL (130-400); RBC Distribution Width 13.8 % (11.5-14.5); Red Blood Cell (RBC) Count 4.53 mill/uL (4.70-6.10); White Blood Cell (WBC) Count 6.7 thou/uL (4.8-10.8)
[2017-08-04 06:15] LABS: Anion Gap 11 mmol/L (10-20); BUN (Urea Nitrogen) 8 mg/dL (8.9-20.6); Calc. Creatinine Clearance 263 mL/min (70-130); Calcium 9.4 mg/dL (7.8-10.44); Carbon Dioxide 25 mmol/L (22-29); Chloride 105 mmol/L (98-107); Estimated GFR-MDRD Greater than 90; Glucose 103 mg/dL (70-105); Potassium 3.9 mmol/L (3.5-5.1); Sodium 137 mmol/L (136-145)
[2017-08-04] MEDS: Losartan 25 MG TAB PO SCH (09:48)
[2017-08-04] MEDS: Multivit, Therapeutic 1 TAB PO SCH (09:49)
[2017-08-04] MEDS: FLUoxetine HCl 20 MG CAP PO SCH (09:49)
[2017-08-04] MEDS: Saccharomyces boulardii 250 MG CAP PO SCH (09:49)
[2017-08-04] MEDS: Enoxaparin Sodium 40 MG/0.4 ML SYRINGE SC SCH (09:50)
[2017-08-04] MEDS: Famotidine 20 MG TAB PO SCH ×2 (09:50→21:43)
--- NOTE | 2017-08-04 10:34 | PDOC.PN ---
- Subjective Encounter Start Date: 08/04/17 Encounter Start Time: 08:20 Patient seen and examined. No new complaints. No overnight events - Objective Resuscitation Status: Resuscitation Status FULL:Full Resuscitation MAR Reviewed: Yes Vital Signs & Weight: Vital Signs (12 hours) Temp Pulse Resp BP Pulse Ox 08/04/17 08:00 98.6 F 83 14 171/110 H 98 08/04/17 03:24 98.4 F 75 16 158/95 H 98 08/04/17 00:05 98.7 F 82 16 154/98 H 99 Weight Admit Weight 324 lb 9.6 oz Weight 324 lb 9.6 oz I&O: 08/03/17 08/04/17 08/05/17 06:59 06:59 06:59 Intake Total 4530 3960 Balance 4530 3960 Result Diagrams: 08/04/17 05:38 08/04/17 05:38 Phys Exam - Physical Examination Constitutional: NAD HEENT: PERRLA, moist MMs, sclera anicteric Neck: no JVD, supple Respiratory: no wheezing, no rales, no rhonchi Cardiovascular: RRR, no significant murmur, no rub Gastrointestinal: soft, non-tender, no distention, positive bowel sounds Musculoskeletal: pulses present, edema present chronic venous stasis with wraping Neurological: non-focal, normal sensation, moves all 4 limbs Psychiatric: normal affect, A&O x 3 Skin: no rash, normal turgor Dx/Plan (1) Cellulitis of right lower extremity Code(s): L03.115 - CELLULITIS OF RIGHT LOWER LIMB Status: Acute (2) HTN (hypertension) Code(s): I10 - ESSENTIAL (PRIMARY) HYPERTENSION Status: Acute (3) Bipolar 1 disorder Code(s): F31.9 - BIPOLAR DISORDER, UNSPECIFIED Status: Chronic (4) Chronic venous insufficiency Status: Chronic (5) Morbid obesity Code(s): E66.01 - MORBID (SEVERE) OBESITY DUE TO EXCESS CALORIES Status: Chronic (6) NENA (obstructive sleep apnea) Code(s): G47.33 - OBSTRUCTIVE SLEEP APNEA (ADULT) (PEDIATRIC) Status: Chronic Comment: CPAP hs (7) Venous stasis Code(s): I87.8 - OTHER SPECIFIED DISORDERS OF VEINS Status: Chronic - Plan cont current plan of care, continue antibiotics * continue iv vancomycin and levaquin * medication reviewed as below * symptomatic treatment. * continue wound care Review of Systems - Review of Systems Constitutional: negative: fever, chills, sweats, weakness, malaise, other ENT: negative: Ear Pain, Ear Discharge, Nose Pain, Nose Discharge, Nose Congestion, Mouth Pain, Mouth Swelling, Throat Pain, Throat Swelling, Other Respiratory: negative: Cough, Dry, Shortness of Breath, Hemoptysis, SOB with Excertion, Pleuritic Pain, Sputum, Wheezing Cardiovascular: negative: chest pain, palpitations, orthopnea, paroxysmal nocturnal dyspnea, edema, light headedness, other Gastrointestinal: negative: Nausea, Vomiting, Abdominal Pain, Diarrhea, Constipation, Melena, Hematochezia, Other Genitourinary: negative: Dysuria, Frequency, Incontinence, Hematuria, Retention , Other Musculoskeletal: negative: Neck Pain, Shoulder Pain, Arm Pain, Back Pain, Hand Pain, Leg Pain, Foot Pain, Other Skin: negative: Rash, Lesions, Shashank, Bruising, Other - Medications/Allergies Allergies/Adverse Reactions: Allergies Allergy/AdvReac Type Severity Reaction Status Date / Time codeine Allergy Intermediate Hives Verified 06/18/14 21:25 Penicillins Allergy Intermediate Hives Verified 05/18/17 01:32 Medications: Current Medications Acetaminophen (Tylenol) 650 mg PO Q4H PRN PRN Reason: Headache/Fever or Pain Last Admin: 08/03/17 09:03 Dose: 650 mg Al Hydroxide/Mg Hydroxide (Maalox) 30 ml PO Q6H PRN PRN Reason: Heartburn or Indigestion Artificial Tears (Tears Naturale) 0 drop EA EYE PRN PRN PRN Reason: Dry Eyes Enoxaparin Sodium (Lovenox) 40 mg SC 0900 [facility] Last Admin: 08/04/17 09:50 Dose: 40 mg Famotidine (Pepcid) 20 mg PO BID [facility] Last Admin: 08/04/17 09:50 Dose: 20 mg Fentanyl (Sublimaze) 25 mcg SLOW IVP Q4H PRN PRN Reason: Pain Fluoxetine HCl (Prozac) 40 mg PO DAILY [facility] Last Admin: 08/04/17 09:49 Dose: 40 mg Guaifenesin (Robitussin Sf) 200 mg PO Q4H PRN PRN Reason: Cough Hydralazine HCl (Apresoline) 10 mg SLOW IVP Q4H PRN PRN Reason: Systolic BP > 180 Vancomycin HCl 2 gm/Miscellaneous Medication 1 each/ Sodium Chloride 500 mls @ 250 mls/hr IVPB 0100,0900,1700 [facility] Last Admin: 08/04/17 09:48 Dose: 500 mls Ketorolac Tromethamine (Toradol) 15 mg IVP Q6H PRN PRN Reason: Pain Last Admin: 08/02/17 06:09 Dose: 15 mg Levofloxacin (Levaquin) 500 mg PO 1430 [facility] Last Admin: 08/03/17 14:32 Dose: 500 mg Loperamide HCl (Imodium) 2 mg PO PRN PRN PRN Reason: Diarrhea/Loose Stools Loratadine (Claritin) 10 mg PO DAILYPRN PRN PRN Reason: Sinus Symptoms Losartan Potassium (Cozaar) 100 mg PO DAILY [facility] Last Admin: 08/04/17 09:48 Dose: 100 mg Magnesium Hydroxide (Milk Of Magnesium) 30 ml PO DAILYPRN PRN PRN Reason: Constipation Mineral Oil/White Petrolatum (Eucerin Cream) 0 gm TOP BIDPRN PRN PRN Reason: Dry Skin Miscellaneous Medication (Pharmacy To Dose) 1 each IVPB ASDIR [facility] Multivitamins (Theragran) 1 tab PO DAILY [facility] Last Admin: 08/04/17 09:49 Dose: 1 tab Olanzapine (Zyprexa) 10 mg PO HS [facility] Last Admin: 08/03/17 21:14 Dose: 10 mg Ondansetron HCl (Zofran Odt) 4 mg PO Q6H PRN PRN Reason: Nausea/Vomiting Ondansetron HCl (Zofran) 4 mg IVP Q6H PRN PRN Reason: Nausea/Vomiting Phenol (Chloraseptic [place] 180 Ml Bot) 0 ml PO PRN PRN PRN Reason: Sore Throat Saccharomyces Boulardii (Florastor) 250 mg PO DAILY [facility] Last Admin: 08/04/17 09:49 Dose: 250 mg Senna (Senokot) 2 tab PO HSPRN PRN PRN Reason: Constipation Sodium Chloride (Page Nasal [place] 0.65%) 0 ml EA NARE QIDPRN PRN PRN Reason: Nasal Congestion Zolpidem Tartrate (Ambien) 5 mg PO HSPRN PRN PRN Reason: Insomnia
[2017-08-04 16:56] LABS: Vancomycin, Trough 20.5 ug/mL
[2017-08-04] MEDS: Acetaminophen 325 MG TAB PO PRN (20:08)
[2017-08-04] MEDS: OLANZapine 5 MG TAB PO SCH (21:43)
[2017-08-05] MEDS: Vancomycin HCl 2 GM, Admixture Fee 1 EACH in Sodium Chloride 0.9% 500 ML IVPB SCH ×2 (00:35→08:35)
[2017-08-05] MEDS: Multivit, Therapeutic 1 TAB PO SCH (08:36)
[2017-08-05] MEDS: Losartan 25 MG TAB PO SCH (08:36)
[2017-08-05] MEDS: Saccharomyces boulardii 250 MG CAP PO SCH (08:36)
[2017-08-05] MEDS: Famotidine 20 MG TAB PO SCH (08:36)
[2017-08-05] MEDS: Enoxaparin Sodium 40 MG/0.4 ML SYRINGE SC SCH (08:37)
[2017-08-05] MEDS: FLUoxetine HCl 20 MG CAP PO SCH (08:37)
[2017-08-05] MEDS ORDERED: Hydrochlorothiazide 25 MG TAB PO SCH (09:00)
--- NOTE | 2017-08-05 12:17 | DIS ---
DATE OF ADMISSION: 08/01/2017 DATE OF DISCHARGE: 08/05/2017 PRIMARY CARE PHYSICIAN: Dr. Prieto Lea. DISCHARGE DISPOSITION: Home. PRIMARY DISCHARGE DIAGNOSIS: Right lower extremity cellulitis. SECONDARY DISCHARGE DIAGNOSES: Chronic venous stasis, obstructive sleep apnea, morbid obesity with B TN 42, chronic venous insufficiency, bipolar 1 disorder, hypertension. PRIMARY PROCEDURE/OPERATION: None. RADIOLOGICAL INVESTIGATION: Ultrasound was negative for DVT. Arterial ultrasound was normal. SIGNIFICANT LABORATORY DATA: Hemoglobin 13.2, creatinine 0.74. CRP 0.81. LFT normal. Blood cultur e negative. DISCHARGE MEDICATIONS: Ciprofloxacin 500 mg p.o. b.i.d. for 15 days, doxycycline 100 mg p.o. twice d aily for 15 days, Pepcid 20 mg p.o. b.i.d., Prozac 40 mg p.o. daily, hydrochlorothiazide 25 mg p.o. d aily, losartan 100 mg p.o. daily, multivitamin 1 tablet p.o. daily, Zyprexa 10 mg p.o. at bedtime, Fl orastor 250 mg p.o. daily. CONTRAINDICATIONS: None. CODE STATUS: FULL CODE. INPATIENT CONSULTANTS: None. ALLERGIES: CODEINE, PENICILLIN. DISCHARGE PLAN: Post hospital, the patient already has appointment with Dr. Sheehan at vein clinic for vein ablation. The patient will follow up with the [facility] on 08/17/2017 at 9:00 a.m. The patient will make appointment with Dr. Lea. HOSPITAL COURSE: A 47-year-old male who has morbid obesity, sleep apnea, and chronic venous insuffic iency with a history of varicose vein. He has chronic hyperpigmentation of both lower extremities an d this time he was admitted for right lower extremity cellulitis. He was having erythema, swelling, tenderness of right lower extremity more than left and he was given oral antibiotic therapy by primar care physician without any significant improvement and considering failure of outpatient therapy, blake naik was admitted to medical floor. He was treated with broad spectrum antibiotic therapy with vancomyc in and Levaquin. On discharge, we changed to p.o. Cipro and doxycycline. His culture remained negat blayne. While in hospital, wound care team was consulted and they did ALLI bandage. This patient will n eed wound care every week and that is why wound care is arranged. The patient already has vein clini c appointment with Dr. Sheehan. The patient is seen and examined at bedside today. The patient's all new medication prescriptions se nt to his pharmacy. His examination is unchanged, but his right lower extremity cellulitis significa ntly improved. Overall, patient is medically stable for discharge today.
[2017-08-05 12:42] VITALS: BP 170/128; TEMP 99
== END 2017-08-05 14:35 | disposition home or self-care (01) | DRG 300 ==
LOC: ERS 06:50 → SURG A 09:54
PROVIDERS: ADMIT Internal Medicine; ATTEND Internal Medicine
DX: I83.218 Varicose veins of right lower extremity with both ulcer of other part of lower extremity and inflammation (principal); L03.115 Cellulitis of right lower limb; E66.01 Morbid (severe) obesity due to excess calories; L97.819 Non-pressure chronic ulcer of other part of right lower leg with unspecified severity; Z68.41 Body mass index [BMI] 40.0-44.9, adult; I10 Essential (primary) hypertension; F31.9 Bipolar disorder, unspecified; Z88.5 Allergy status to narcotic agent; Z88.0 Allergy status to penicillin; G47.33 Obstructive sleep apnea (adult) (pediatric); I87.8 Other specified disorders of veins
CPT/HCPCS: 36415; 80048; 80053; 80202; 85025; 86140; 87040; 93922; 96365; 96366; J0360; J1650; J1885; J1956; J3370; J7050

== ENCOUNTER 2017-08-17 08:48 | Outpatient (CLI) | payer BC ==
[2017-08-17] MEDS ORDERED: Sodium Chloride 0.9% 15 ML NEB ONE (09:00)
--- NOTE | 2017-08-17 11:26 | HP ---
DATE OF SERVICE: 08/17/2017 HISTORY OF PRESENT ILLNESS: Mr. Beck Sky Jr. is a very pleasant 47-year-old gentleman prev iously seen in the Wound Center in 01/2014 for an ulceration of the left lower leg in the region of t he medial malleolus. The patient now presents with multiple wounds of the right lower leg after admi ssion to [facility] for right lower extremity cellulitis. The patient states that he was not utilizing his compression garments as prescribed and he developed edema of his right lower extremity followed by cellulitis. Mr. Sky was discharged from [facility] nter on 08/05/2017. Mr. Sky has no complaints today. He denies any fever or chills. PAST MEDICAL HISTORY: 1. History of heart murmur. 2. Hypertension. 3. Obstructive sleep apnea. PAST SURGICAL HISTORY: 1. Oral surgery for wisdom teeth extraction. 2. Surgery for urethral stricture. 3. Surgery for symptomatic varicosities. MEDICATIONS: 1. HCTZ. 2. Florastor. 3. Zyprexa. 4. Prozac. 5. Losartan. 6. Doxycycline. 7. Ciprofloxacin. 8. Potassium. 9. Multivitamin. ALLERGIES: PENICILLIN, CODEINE. SOCIAL HISTORY: Negative for tobacco or ETOH use. FAMILY HISTORY: Negative for diabetes mellitus. The patient states that he does have a family histo ry of coronary artery disease. He states that he has multiple relatives on the paternal side of his family who were diagnosed with coronary artery disease. PHYSICAL EXAMINATION: VITAL SIGNS: Temperature 98.3, pulse 89, respirations 19, blood pressure 144/84. GENERAL: A 47-year-old gentleman sitting on table in examination room in no acute distress. HEENT: Normocephalic, atraumatic. NECK: No nuchal rigidity. CHEST: Clear to auscultation. CARDIAC: Regular rate and rhythm. ABDOMEN: Soft. EXTREMITIES: Multiple wounds of the right lower leg are present which measure approximately 1.5 x 5. 0 cm, 4.5 x 4.0 cm and 3.0 x 5.0 cm. Eschar covers each wound bed in its entirety. No serous or pur ulent drainage is associated with any of the wounds. No maceration of the skin of the right lower le g is present. A dorsalis pedis pulse is easily palpable on the right. Edema of the right foot and l ower leg is present on exam today. Numerous varicosities are present over the right lower leg. Disc oloration of the skin of the right lower leg is also present secondary to hemosiderin deposition. ASSESSMENT AND PLAN: 1. 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 As stated above Eschar covers the entirety of each wound bed. Webril, and 3m Coban 2-layer compression system will be applied to the right foot and lower leg today. I will see Mr. Sky again on 08/25/2017. At this time, arrangements will be made for the initiation of in-home lymphedema therapy. The patient understands and is in agreement with the preceding treatment plan. 2. Lymphedema tarda. As stated above arrangements will be made for the acquisition of a pneumatic p ump for treatment of right lower extremity lymphedema. 3. History of heart murmur. 4. Hypertension. 5. Obstructive sleep apnea.
== END 2017-08-17 08:49 | disposition home or self-care (01) ==
LOC: WCC 08:48
PROVIDERS: ATTEND Family Medicine
DX: I83.018 Varicose veins of right lower extremity with ulcer other part of lower leg (principal); I89.0 Lymphedema, not elsewhere classified; G47.33 Obstructive sleep apnea (adult) (pediatric); I10 Essential (primary) hypertension; Z86.79 Personal history of other diseases of the circulatory system
CPT/HCPCS: 29581; 99203; A4218; G0463

== ENCOUNTER 2017-08-25 07:56 | Outpatient (CLI) | payer BC ==
[~2017-08-25 07:56] MED LIST: Sodium Chloride 0.9% 15 ML NEB ONE
--- NOTE | 2017-08-25 10:30 | PRG ---
DATE OF SERVICE: 08/25/2017 HISTORY: Mr. Beck Sky is a very pleasant 47-year-old gentleman who presents to the Wound C enter for evaluation of multiple wounds of the right lower leg after admission to [facility] for right lower extremity cellulitis. The patient previously stated that he was not u tilizing his compression garments as prescribed and he developed edema of his right lower extremity f ollowed by cellulitis. The patient was discharged from [facility] on 08/06/19 18. The patient has no complaints today. He denies any fever or chills. At the time of the patient 's last visit, Webril, and 3M Coban 2 layer compression system were applied to the right foot and low er leg. PHYSICAL EXAMINATION: VITAL SIGNS: Temperature 98.9, pulse 94, respirations 18, blood pressure 139/76. EXTREMITIES: Multiple wounds of the right lower leg are present which measure approximately 1.0 x 3. 5 cm, 4.5 x 3.0 cm and 2.5 x 4.4 cm. Eschar covers each wound bed in its entirety. No serous or pur ulent drainage is associated with any of the wounds. No maceration of the skin of the right lower le g is present. Edema of the right foot and lower leg is present on exam today. Numerous varicosities are present over the right lower leg. Discoloration of the skin of the right lower leg is also pres ent secondary to hemosiderin deposition. ASSESSMENT AND PLAN: 1. 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 As stated above, eschar covers the entire o f each wound bed. Webril and 3M Coban 2-layer compression system will be applied to the right foot a nd lower leg today. I will see Mr. Sky again in one week. 2. Lymphedema tarda. The patient is to undergo venous ablation on the right on 09/08/2017. Venous ablation on the left was performed on 08/11/2017. The patient continues to have edema of the right l ower extremity despite elevation and treatment with compression wraps. 3. History of heart murmur. 4. Hypertension. 5. Obstructive sleep apnea.
== END 2017-08-25 07:57 | disposition home or self-care (01) ==
LOC: WCC 07:56
PROVIDERS: ATTEND Family Medicine
DX: I83.018 Varicose veins of right lower extremity with ulcer other part of lower leg (principal); I89.0 Lymphedema, not elsewhere classified; I10 Essential (primary) hypertension; G47.33 Obstructive sleep apnea (adult) (pediatric); Z86.79 Personal history of other diseases of the circulatory system
CPT/HCPCS: A4218

== ENCOUNTER 2017-09-01 08:06 | Outpatient (CLI) | payer BC ==
--- NOTE | 2017-09-01 09:57 | PRG ---
DATE OF SERVICE: 09/01/2017 HISTORY: Mr. Beck Sky is a very pleasant 47-year-old gentleman who presents to the Wound C enter for evaluation of multiple wounds of the right lower leg after admission to [facility] for right lower extremity cellulitis. The patient previously stated that he was not u tilizing his compression garments as prescribed and he developed edema of his right lower extremity f ollowed by cellulitis. The patient was discharged from [facility] on 08/06/19 18. Mr. Sky has no complaints today. He denies any fever or chills. The patient is receiving dr delvalle changes of Webril and the 3m Coban 2 layer compression system for the right foot and lower leg on a weekly basis. PHYSICAL EXAMINATION: VITAL SIGNS: Temperature 98.7, pulse 93, respirations 18, and blood pressure 145/70. EXTREMITIES: No open wounds of the right lower leg are present on exam today. No cellulitis of the right lower leg is present. No maceration of the skin of the right lower leg is present. A dorsalis pedis pulse is easily palpable on the right. Edema of the right foot and lower leg is present on to day's exam. Numerous varicosities are present over the right lower leg. Discoloration of the skin o f the right lower leg is also present secondary to hemosiderin deposition. ASSESSMENT AND PLAN: 1. 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 As stated above, no open wounds are present over the right lower leg on exam today. Webril and the 3m Coban 2-layer compression system will be applied to the right foot and lower leg. I will see Mr. Sky again in one week. The patient has b een asked to bring his compression garments with him to his next clinic visit. 2. Lymphedema tarda. The patient is to undergo venous ablation on the right on 09/08/[address] Scotty cutler. Venous ablation on the left was performed on 08/11/2017. The patient declines proceeding w ith arrangements for the initiation of in-home lymphedema therapy with a pneumatic pump. 3. History of heart murmur. 4. Hypertension. 5. Obstructive sleep apnea.
== END 2017-09-01 08:07 | disposition home or self-care (01) ==
LOC: WCC 08:06
PROVIDERS: ATTEND Family Medicine
DX: I83.018 Varicose veins of right lower extremity with ulcer other part of lower leg (principal); L97.919 Non-pressure chronic ulcer of unspecified part of right lower leg with unspecified severity; I89.0 Lymphedema, not elsewhere classified; I10 Essential (primary) hypertension; G47.33 Obstructive sleep apnea (adult) (pediatric); Z86.79 Personal history of other diseases of the circulatory system

== ENCOUNTER 2017-09-12 11:32 | Outpatient (CLI) | payer BC ==
--- NOTE | 2017-09-12 18:30 | PRG ---
DATE OF SERVICE: 09/12/2017 HISTORY: Mr. Beck Sky is a very pleasant 47-year-old gentleman, who [facility] evaluation of multiple wounds of the right lower leg after admission to [facility] for right lower extremity cellulitis. The patient previously stated that he was not utilizing his compression garments as prescribed and he developed edema of his right lower extremity followed by cellulitis. The patient was discharged from [facility] on 018. Mr. Sky has no complaints today. He denies any fever or chills. The patient has been recei ving dressing changes of Webril and the 3M Coban 2-layer compression system for the right foot and lo wer leg on a weekly basis. PHYSICAL EXAMINATION: VITAL SIGNS: Temperature 98.2, pulse 99, respirations 19, blood pressure 141/79. EXTREMITIES: No open wounds of the right lower leg are present on exam today. No cellulitis of the right lower leg is present. No maceration of the skin of the right lower leg is present. No signifi cant edema of the right foot or lower leg is present on today's exam. Numerous varicosities are pres ent over the right lower leg. Discoloration of the skin of the right lower leg is also present secon beau to hemosiderin deposition. ASSESSMENT AND PLAN: 1. 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 As stated above, no open wounds are present over the right lower leg on examination today. The patient has been instructed to resume utilizing his compression garment for his right foot and lower leg. The patient has been instructed to apply h is garment each morning and remove the garment at night. Mr. Sky will be discharged from clinic t [facility] with followup on a p.r.n. basis. 2. Lymphedema tarda. The patient is to undergo venous ablation on the right by Dr. Sheehan. Veno us ablation on the left was performed on 08/11/2017. The patient previously declined proceeding with arrangements for the initiation of in-home lymphedema therapy with a pneumatic pump. 3. History of heart murmur. 4. Hypertension. 5. Obstructive sleep apnea.
== END 2017-09-12 11:33 | disposition home or self-care (01) ==
LOC: WCC 11:32
PROVIDERS: ATTEND Family Medicine
DX: I83.018 Varicose veins of right lower extremity with ulcer other part of lower leg (principal); I89.0 Lymphedema, not elsewhere classified; I10 Essential (primary) hypertension; G47.33 Obstructive sleep apnea (adult) (pediatric)
CPT/HCPCS: 29581

== ENCOUNTER 2017-10-14 01:07 | Emergency (ER) | payer BC ==
[2017-10-14] MEDS ORDERED: predniSONE 20 MG TAB ONE (01:35)
[2017-10-14] MEDS ORDERED: Famotidine 20 MG TAB ONE (01:35)
== END 2017-10-14 01:59 | disposition home or self-care (01) ==
LOC: ERS 01:07
DX: T78.40XA Allergy, unspecified, initial encounter (principal); G47.30 Sleep apnea, unspecified; F31.9 Bipolar disorder, unspecified; Z79.899 Other long term (current) drug therapy
CPT/HCPCS: 99283; J7506

== ENCOUNTER 2018-02-02 06:34 | Emergency (ER) | payer BC ==
[2018-02-02 07:18] LABS: #Eosinphils 0.1 thou/uL (0.0-0.7); #Lymphocytes 0.9 thou/uL (1.20-3.40); #Monocytes 0.6 thou/uL (0.11-0.59); #Neutrophils 6.2 thou/uL (1.40-6.50); %Basophils 0.4 % (0.0-1.0); %Eosinophils 1.1 % (0.0-10.0); %Lymphocytes 11.7 % (21.0-51.0); %Monocytes 8.1 % (0.0-10.0); %Neutrophils 78.8 % (42.0-75.0); Hemoglobin 13.4 g/dL (14.0-18.0); Mean Corpuscular HGB CONC 32.5 g/dL (32.0-36.0); Mean Corpuscular Hemoglobin 27.7 pg (27.0-31.0); Mean Corpuscular Volume 85.3 fL (78.0-98.0); Mean Platelet Volume 6.8 fL (7.4-10.4); Platelet Count 212 thou/uL (130-400); RBC Distribution Width 14.1 % (11.5-14.5); Red Blood Cell (RBC) Count 4.84 mill/uL (4.70-6.10); White Blood Cell (WBC) Count 7.8 thou/uL (4.8-10.8)
[2018-02-02 07:26] LABS: Bilirubin Negative (Negative); Blood, Urine Negative (Negative); Clarity CLEAR (Clear); Glucose, Urine (Dipstick) Negative (Negative); Leukocyte Negative (Negative); Nitrite Negative (Negative); Protein, Urine (Dipstick) Negative (Neg-Trace); Specific Gravity, Urine 1.011 (1.002-1.036); Urobilinogen 0.2 mg/dL (0.2-1.0); pH, Urine 5.5 (5.0-9.0)
[2018-02-02 07:42] LABS: ALT (SGPT) 25 U/L (8-55); AST (SGOT) 25 U/L (5-34); Albumin 3.9 g/dL (3.5-5.0); Alkaline Phosphatase 83 U/L (40-150); Anion Gap 10 mmol/L (10-20); BUN (Urea Nitrogen) 12 mg/dL (8.9-20.6); Bilirubin, Total 0.5 mg/dL (0.2-1.2); Calc. Creatinine Clearance 0 mL/min (70-130); Calcium 9.1 mg/dL (7.8-10.44); Carbon Dioxide 29 mmol/L (22-29); Chloride 93 mmol/L (98-107); Estimated GFR-MDRD Greater than 90; Globulin 3.4 g/dL (2.4-3.5); Glucose 105 mg/dL (70-105); Lipase 18 U/L (8-78); Potassium 4.1 mmol/L (3.5-5.1); Protein, Total 7.3 g/dL (6.0-8.3); Sodium 128 mmol/L (136-145)
[2018-02-02] MEDS ORDERED: Lorazepam 2 MG/ML VIAL ONE (08:32)
[2018-02-02] MEDS ORDERED: Morphine 4 MG/ML VIAL ONE (08:33)
[2018-02-02] MEDS ORDERED: Ondansetron HCl/PF 4 MG/2 ML Vial ONE (08:33)
--- NOTE | 2018-02-02 09:33 | CT ---
CT OF ABDOMEN AND PELVIS PERFORMED WITH CONTRAST ENHANCEMENT: History: Midabdominal pain. FINDINGS: The lung bases show subsegmental atelectatic change. The liver and spleen show no focal abnormalities . The spleen measures 14 cm in length, mainly related to a somewhat elongated shape. The pancreas and gallbladder regions appear unremarkable. Right and left adrenal glands and right and left kidneys are normal in size and incompletely characte rized. Hypodensity in the left kidney too small to accurately characterize is probably a cyst. There is no significant periaortic or mesenteric adenopathy. There is evidence of some dilated mid ilial small bowel loops which is associated with a small umbili diaz hernia which appears to be the probable etiology of this obstruction. The bowel distal to this re gion appears nondilated. CT OF PELVIS PERFORMED WITH CONTRAST ENHANCEMENT: No significant adenopathy, mass or free fluid. Appendix is difficult to definitely identify but I see no evidence for appendicitis. IMPRESSION: Partial small bowel obstruction which appears to be caused by small umbilical hernia. POS: [facility]
--- NOTE | 2018-02-02 13:03 | CON ---
DATE OF CONSULTATION: 02/02/2018 ATTENDING SURGEON: Dr. Shayan Chance, referred by the emergency department. REASON FOR CONSULTATION: Abdominal pain, concern for umbilical hernia. HISTORY OF PRESENT ILLNESS: Mr. Sky is a 47-year-old male with past medical history of morbid obesity, NENA, bipolar venous insufficiency and hypertension who presented to the emergency department today with a chief complaint of severe sudden onset of abdominal pain. The patient has a protuberant abdomen. The nurse reports that there is an umbilical defect and hernia that has subsequently been reduced by the emergency department. We are consulted for the possible need of surgical intervention. Patient is hemodynamically stable in the emergency department. He is afebrile with a T-max of 99.0. Had a CT finding of partial small-bowel obstruction. He has no leukocytosis with a very slight leftward shift appreciated. The patient reports that he had a normal formed bowel movement today. He has been afebrile. He has tolerated p.o. He has not nauseated and not vomiting. He has never had this problem in the past. He has reported no previous abdominal surgeries. The patient was seen and examined with Dr. Chance in the emergency department. He denies any chest pain, shortness of breath, only complains of the abdominal pain that is 1-2 out of a scale of 10 at this time. REVIEW OF SYSTEMS: Pertinent positive and negative per HPI, otherwise regard is negative. PAST MEDICAL HISTORY: 1. NENA. 2. Obesity. 3. Bipolar. 4. Venous insufficiency. 5. Hypertension. PAST SURGICAL HISTORY: 1. He has had a vein ablation. 2. Oral surgery. 3. Urologic surgery in the past. FAMILY HISTORY: Unknown. MEDICATIONS: Please see the med rec once it is completed. SOCIAL HISTORY: Patient is a lifelong nondrinker, nonsmoker, who works at [employer]. Lives with a roommate and he had a normal formed bowel movement. PHYSICAL EXAMINATION: VITAL SIGNS: Temperature is 99.0, blood pressure 138/88, heart rate is 98, respiratory rate is 18, he is 99% on room air. GENERAL: This is a morbidly obese male, sitting up in bed with no acute distress. HEENT: Normocephalic, atraumatic. NECK: Trachea is midline. RESPIRATORY: Equal rise and fall. No respiratory distress. CARDIOVASCULAR: Regular rate and strong pulses. ABDOMEN: Protuberant, large abdomen, it is soft. No conor tenderness to palpation in all quadrants. The patient does have a small umbilical defect appreciated with no incarcerated or strangulated hernia that is noted on physical exam. Lower extremity does have venous stasis skin changes with plaques. He has edema and erythema noted consistent with peripheral vascular disease. DIAGNOSTIC DATA: Today, CT shows a possible small-bowel obstruction which could be from the small umbilical hernia. LABORATORY DATA: Sodium is 128, potassium 4.1, chloride is 93, creatinine 0.83 and BUN is 12. His liver profile is unremarkable. Urine is negative for infectious etiology. White blood cell count of 7.8 with platelets of 212, hemoglobin and hematocrit 13.4 and 41.3 respectively. Lipase is negative. ASSESSMENT AND PLAN: 1. Abdominal pain. 2. Small umbilical defect. 3. Possible early or incomplete small-bowel obstruction. RECOMMENDATIONS: There is no surgical indication at this time as there is only a small umbilical defect. The patient had a formed bowel movement and is not nauseated. He is nontoxic appearing, afebrile, has no leukocytosis. Therefore , we expect medical management of this patient as the medicine emergency department is indicated. From a surgical standpoint, there is no operative intervention that is needed at this time. We will sign off and defer disposition to the emergency department team. If anything changes in the future , will be more than willing to see the patient again. The patient was seen with Dr. Chance and this plan can be updated as needed. EDIL
[2018-02-02] MEDS ORDERED: ISOVUE-370 76%-LOCM 1 ML ONE (14:47)
== END 2018-02-02 11:55 | disposition home or self-care (01) ==
LOC: ERS 06:34
DX: K56.600 Partial intestinal obstruction, unspecified as to cause (principal); K42.9 Umbilical hernia without obstruction or gangrene; I10 Essential (primary) hypertension; G47.30 Sleep apnea, unspecified; F31.9 Bipolar disorder, unspecified; F42.9 Obsessive-compulsive disorder, unspecified; Z79.899 Other long term (current) drug therapy
CPT/HCPCS: 36415; 74177; 80053; 81003; 83690; 85025; 96361; 96374; 96375; J2060; J2270; J2405

== ENCOUNTER 2020-04-10 17:38 | Emergency (ER) | payer BC ==
[2020-04-10 23:26] LABS: #Lymphocytes 1.5 thou/uL (1.20-3.40); #Monocytes 0.8 thou/uL (0.11-0.59); #Neutrophils 4.2 thou/uL (1.40-6.50); %Basophils 0.1 % (0.0-1.0); %Eosinophils 0.7 % (0.0-10.0); %Lymphocytes 22.8 % (21.0-51.0); %Monocytes 12.3 % (0.0-10.0); %Neutrophils 64.1 % (42.0-75.0); Hemoglobin 15.3 g/dL (14.0-18.0); Mean Corpuscular HGB CONC 34.3 g/dL (32.0-36.0); Mean Corpuscular Hemoglobin 29.5 pg (27.0-31.0); Mean Platelet Volume 7.4 fL (7.4-10.4); Platelet Count 182 thou/uL (130-400); RBC Distribution Width 13.9 % (11.5-14.5); Red Blood Cell (RBC) Count 5.18 mill/uL (4.70-6.10); White Blood Cell (WBC) Count 6.5 thou/uL (4.8-10.8)
--- NOTE | 2020-04-11 06:24 | RAD ---
SINGLE VIEW CHEST: Date: 04/10/2020 COMPARISON: 01/12/2020. HISTORY: COVID with shortness of breath. FINDINGS: Single view of the chest shows an enlarged but stable cardiomediastinal silhouette. There appear to b e subtle multifocal infiltrates in the lungs. These may represent COVID infiltrates. No pleural effus ion seen. IMPRESSION: Possible early subtle multifocal infiltrates. POS: [facility]
== END 2020-04-10 23:35 | disposition home or self-care (01) ==
LOC: ERS 17:38
DX: U07.1 COVID-19 (principal); I10 Essential (primary) hypertension
CPT/HCPCS: 36415; 71045; 85025

== ENCOUNTER 2022-08-06 10:13 | Emergency (ER) | payer BC, SELFPAY ==
[2022-08-06 12:12] LABS: #Lymphocytes 0.8 thou/uL (1.20-3.40); #Monocytes 0.5 thou/uL (0.11-0.59); #Neutrophils 8.3 thou/uL (1.40-6.50); %Basophils 0.3 % (0.0-1.0); %Eosinophils 0.1 % (0.0-10.0); %Lymphocytes 8.5 % (21.0-51.0); %Monocytes 5.4 % (0.0-10.0); %Neutrophils 85.7 % (42.0-75.0); Hemoglobin 13.9 g/dL (14.0-18.0); Mean Corpuscular HGB CONC 32.7 g/dL (32.0-36.0); Mean Corpuscular Hemoglobin 29.1 pg (27.0-31.0); Mean Corpuscular Volume 89.1 fl (78.0-98.0); Mean Platelet Volume 6.7 fL (7.4-10.4); Platelet Count 216 10x3/uL (130-400); RBC Distribution Width 13.7 % (11.5-14.5); Red Blood Cell (RBC) Count 4.76 mill/uL (4.70-6.10); White Blood Cell (WBC) Count 9.7 10x3/uL (4.8-10.8)
[2022-08-06 12:30] LABS: ALT (SGPT) 34 U/L (8-55); AST (SGOT) 29 U/L (5-34); Albumin 4.1 g/dL (3.5-5.0); Alkaline Phosphatase 79 U/L (40-110); Anion Gap 14 mmol/L (10-20); BUN (Urea Nitrogen) 17 mg/dL (8.9-20.6); Bilirubin, Total 0.7 mg/dL (0.2-1.2); Calc. Creatinine Clearance 0 mL/min (70-130); Calcium 9.4 mg/dL (7.8-10.44); Carbon Dioxide 28 mmol/L (22-29); Chloride 91 mmol/L (98-107); Estimated GFR 56; Globulin 3.6 g/dL (2.4-3.5); Glucose 125 mg/dL (70-105); Potassium 4.3 mmol/L (3.5-5.1); Protein, Total 7.7 g/dL (6.0-8.3); Sodium 129 mmol/L (136-145)
== END 2022-08-06 14:39 | disposition home or self-care (01) ==
LOC: ERS 10:13
DX: I95.9 Hypotension, unspecified (principal); E87.1 Hypo-osmolality and hyponatremia; I10 Essential (primary) hypertension; Z79.899 Other long term (current) drug therapy
CPT/HCPCS: 36415; 71045; 80053; 84484; 85025; 93005; 94760

== ENCOUNTER 2023-04-24 16:31 | Emergency (ER) | payer SELFPAY ==
[2023-04-24] MEDS ORDERED: Bacitracin 1 PK ONE (17:02)
== END 2023-04-24 17:24 | disposition home or self-care (01) ==
LOC: ERS 16:31
DX: S90.425A Blister (nonthermal), left lesser toe(s), initial encounter (principal); I10 Essential (primary) hypertension; X58.XXXA Exposure to other specified factors, initial encounter; Z79.899 Other long term (current) drug therapy
CPT/HCPCS: 99283

== ENCOUNTER 2025-01-11 19:53 | Emergency (ER) | payer OTHER, SELFPAY ==
[2025-01-11] MEDS ORDERED: Ketorolac Tromethamine 30 MG (1 mL) VIAL ONE (21:15)
== END 2025-01-11 21:20 | disposition home or self-care (01) ==
LOC: ERS 19:53
DX: M79.672 Pain in left foot (principal); G89.29 Other chronic pain; I10 Essential (primary) hypertension
CPT/HCPCS: 96372; 99283; J1885